=== PATIENT | female | born 1970 | race Caucasian/White ===

== ENCOUNTER → 2021-03-11 | Outpatient (CLI) | payer OTHER ==
[~2021-03-11] MED LIST: PROTONIX40 M2 PO; ZYRTEC10 M4 PO
== END ==
LOC: LAB 11:13
PROVIDERS: ATTEND Student in an Organized Health Care Education/Training Program
DX: Z01.812 Encounter for preprocedural laboratory examination (principal); Z20.822 Contact with and (suspected) exposure to COVID-19

== ENCOUNTER → 2021-03-14 | Outpatient (CLI) | payer OTHER ==
[~2021-03-14] VITALS: Ht 170.2 cm; Wt 137.0 kg
--- NOTE | 2021-03-15 18:06 | PATH ---
[facility] [address] PATHOLOGY RPT PROCEDURE Name: SAMMIE MICHAEL Room #: REG CHACORTA Casiano.#: [id number] Admission: 03/14/21 Date of : 74 Discharge: Report #: [id number] Path Case #: [id number] [facility] Accession Number: [id number] . 01 Material submitted: . PART A: esophagus - RANDOM ESOPHAGEAL BIOPSY- R/O EOSINOPHILIC ESOPHAGITIS PART B: hepatic flexure - HEPATIC FLEXURE POLYP PART C: sigmoid colon - SIGMOID COLON POLYP . 01 Clinical history: . ESOPHAGOGASTRODUODENOSCOPY DYSPHAGIA, REGURGITATION, SCREENING COLON NORMAL EGD, COLON POLYPS . 02 Diagnosis: A. Squamous mucosa (random esophageal biopsies): - Mild chronic esophagitis. . B. Colonic mucosa (hepatic flexure polyp): - Polypoid colonic mucosa with lymphoid aggregates. . C. Colonic mucosa (sigmoid colon polyp): - Serrated adenoma. . (ASHLYN:kaci; 03/15/2021) MBR 03/15/2021 1545 Local . 02 Comment: We find no evidence of high grade dysplasia or of malignancy. . A. Esophageal biopsy part A is negative for eosinophilic esophagitis. . (ASHLYN:front desk clerk; 03/15/2021) . 02 Electronically signed: . Williams Peters MD, Pathologist NPI- [id number] . 01 Gross description: . A. The specimen is received in formalin, labeled "Sammie Addison, random esophageal BX". Received are 4 segments of pale glass tissue ranging in size from 0.4-0.5 cm in maximum dimensions. The specimen is entirely submitted in cassette A1. . B. The specimen is received in formalin, labeled "Sammie Addison, hepatic flexure polyp". Received is a single segment of pale glass tissue measuring 0.8 cm in maximum dimensions. [place] [address] PATHOLOGY RPT PROCEDURE Name: SAMMIE MICHAEL J Room #: REG [facility]#: [id number] Admission: 03/14/21 Date of : 74 Discharge: Report #: [id number] Path Case #: [id number] cassette B1. . C. The specimen is received in formalin, labeled "Sammie Addison, sigmoid colon polyp". Received is a single segment of pale glass tissue measuring 0.6 cm in maximum dimensions. The specimen is entirely submitted in cassette C1. ([facility]; 03/14/2021) NRI/NRI 03/14/2021 1619 Local . 02 Pathologist provided ICD-10: K20.90, D12.5 . 02 CPT . 766268, [id number], [id number] Specimen Comment: A courtesy copy of this report has been sent to [phone] Specimen Comment: [id number] Specimen Comment: Report sent to / DR MOYA Performed at: [facility] [address] [place] [id number] MD Dedrick Hammond MD Phone: [phone] Performed at: [address] [id number] MD Williams Peters MD Phone: [phone]
== END | disposition home or self-care (01) ==
LOC: GI 10:00
PROVIDERS: ATTEND Internal Medicine Gastroenterology
DX: Z12.11 Encounter for screening for malignant neoplasm of colon (principal); R13.10 Dysphagia, unspecified; D12.5 Benign neoplasm of sigmoid colon; K21.00 Gastro-esophageal reflux disease with esophagitis, without bleeding; K31.84 Gastroparesis; K21.9 Gastro-esophageal reflux disease without esophagitis; Z98.890 Other specified postprocedural states; Z79.899 Other long term (current) drug therapy; Z90.49 Acquired absence of other specified parts of digestive tract
CPT/HCPCS: 62110; 62900